=== PATIENT | female | born 1990 | race Caucasian/White ===

== ENCOUNTER → 2017-08-23 17:00 | Outpatient (CLI) | payer OTHER, SELFPAY ==
[2017-08-26 15:04] LABS: HPV Reflexed? NOT INDICATED
== END ==
PROVIDERS: Visit Provider Obstetrics & Gynecology
DX: Z12.4 Encounter for screening for malignant neoplasm of cervix (principal)
CPT/HCPCS: 88175; G0145

== ENCOUNTER → 2018-09-28 11:01 | Outpatient (CLI) | payer OTHER, SELFPAY ==
[2018-09-29 12:28] LABS: HPV Reflexed? NOT INDICATED
== END ==
PROVIDERS: Visit Provider Obstetrics & Gynecology
DX: Z12.4 Encounter for screening for malignant neoplasm of cervix (principal)
CPT/HCPCS: 88175; G0145

== ENCOUNTER → 2019-11-14 10:28 | Outpatient (CLI) | payer OTHER, SELFPAY ==
[2019-11-16 16:07] LABS: Age Gdln ACOG Testing 30-65 (.)
[2019-11-16 18:10] LABS: HPV APTIMA, High Risk Negative (Negative); HPV Reflexed? YES, CHARGE PATIENT
== END ==
PROVIDERS: Referring Provider Obstetrics & Gynecology; Visit Provider Obstetrics & Gynecology
DX: Z12.4 Encounter for screening for malignant neoplasm of cervix (principal)
CPT/HCPCS: 87624; 88175; G0145

== ENCOUNTER → 2021-01-14 10:46 | Outpatient (CLI) | payer OTHER, SELFPAY ==
[2021-01-14 11:55] LABS: Absolute Neutrophil Count 5.4 X10^3/uL (2.0-7.7); Basophil# 0.04 X10^3/uL; Basophil% 0.5 % (0-1); Eosinophil# 0.06 X10^3/uL; Eosinophils% 0.8 % (0-5); Hematocrit 38.6 % (37-47); Hemoglobin 12.8 g/dL (12.0-15.0); Mean Corp Hgb Conc 33.2 g/dL (32-36); Mean Corpuscular Hgb 30.7 pg (27.0-32.0); Mean Corpuscular Volume 92.6 fL (81-99); Monocyte# 0.42 X10^3/uL; Monocyte% 5.7 % (0-10); NRBC Flagged by Analyzer 0 % (0-5); Neutrophil # 5.41 X10^3/uL (2.7-7.7); Neutrophil % 73.6 % (47-70); Platelet Count 284 K/mm3 (150-450); RBC Distribution Width CV 12.2 % (11.6-14.6); RBC Distribution Width SD 41.1 fl (35.1-43.9); Red Blood Count 4.17 M/mm3 (4.2-5.4); White Blood Count 7.4 K/mm3 (4.4-11.0)
[2021-01-14 12:17] LABS: Glucose Challenge Gest 1H 50g 206 mg/dL (70-140)
[2021-01-14 12:56] LABS: HIV - WCH Non-Reactive (Nonreactive); Hepatitis B Surface Antigen Non-Reactive (Nonreactive); Hepatitis C Antibody Non-Reactive (Nonreactive); Rubella IgG Reactive (Nonreactive); Syphilis Antibodies Non-reactive
[2021-01-16 03:07] LABS: Chlamydia By Nucleic Acid AMP Negative (Negative)
[2021-01-16 08:15] LABS: Gonococcus By Nucleic Acid AMP Negative (Negative)
[2021-01-20 09:38] LABS: HPV APTIMA, High Risk Negative (Negative)
[2021-01-20 09:39] LABS: HPV Reflexed? YES, CHARGE PATIENT
== END ==
PROVIDERS: Visit Provider Obstetrics & Gynecology
DX: Z12.4 Encounter for screening for malignant neoplasm of cervix (principal); Z11.3 Encounter for screening for infections with a predominantly sexual mode of transmission; Z34.81 Encounter for supervision of other normal pregnancy, first trimester
CPT/HCPCS: 36415; 82950; 85025; 86703; 86762; 86780; 86803; 87086; 87088; 87340; 87491; 87591; 87624; 88175; G0145

== ENCOUNTER → 2021-03-16 10:32 | Outpatient (CLI) | payer OTHER, SELFPAY ==
[2021-03-18 03:07] LABS: AFP MoM Value 1.55 (.); AFP Value-EIA 45.2 ng/mL (.); Comment Report (.); DIA MoM Value 0.64 (.); DIA Value-EIA 106.36 pg/mL (.); DSR (By Age) 397 (.); DSR (Second Trimester) 10000 (.); Gestat. Age Based On As provided (.); Insulin Dep Diabetes No (.); Maternal Age At EDD 33.6 yr (.)
== END ==
PROVIDERS: Visit Provider Obstetrics & Gynecology
DX: Z34.82 Encounter for supervision of other normal pregnancy, second trimester (principal)
CPT/HCPCS: 36415; 82105; 82677; 84702

== ENCOUNTER 2021-08-11 10:17 | Outpatient (CLI) | payer OTHER, SELFPAY | END 2021-08-11 23:59 | disposition home or self-care (01) | LOC: LABSPEC 10:21 | PROVIDERS: Visit Provider Obstetrics & Gynecology | DX: Z36.85 Encounter for antenatal screening for Streptococcus B (principal) | CPT/HCPCS: 87081 ==

== ENCOUNTER 2021-08-31 14:50 | Inpatient (IN) | payer OTHER, SELFPAY ==
[2021-08-31] VITALS (52 sets, daily range): BP systolic 72–132; BP diastolic 37–93; PULSE 69–123; RESP 12–18; TEMP 36.5–37.3; O2SAT 85–100; BMI 31.6
[2021-08-31] MEDS: Lactated Ringers 1,000 ML 999 ML IV ×2 (05:45→17:59)
[2021-08-31 06:48] LABS: Absolute Lymphocyte Count 1.78 X10^3/uL (0.83-4.51); Absolute Neutrophil Count 5.7 X10^3/uL (2.0-7.7); Basophil# 0.03 X10^3/uL; Basophil% 0.4 % (0-1); Eosinophil# 0.07 X10^3/uL; Eosinophils% 0.8 % (0-5); Hematocrit 36.4 % (37-47); Hemoglobin 12.3 g/dL (12.0-15.0); Lymphocyte # 1.78 X10^3/ul (0.83-4.51); Lymphocyte % 21.3 % (19-41); Mean Corp Hgb Conc 33.8 g/dL (32-36); Mean Corpuscular Hgb 29.4 pg (27.0-32.0); Mean Corpuscular Volume 87.1 fL (81-99); Monocyte# 0.69 X10^3/uL; Monocyte% 8.2 % (0-10); NRBC Flagged by Analyzer 0 % (0-5); Neutrophil % 68.1 % (47-70); Platelet Count 271 K/mm3 (150-450); RBC Distribution Width CV 13.7 % (11.6-14.6); RBC Distribution Width SD 43.1 fl (35.1-43.9); Red Blood Count 4.18 M/mm3 (4.2-5.4); White Blood Count 8.4 K/mm3 (4.4-11.0)
[2021-08-31] MEDS: Lactated Ringers 500 ML 999 ML IV (15:20)
[2021-08-31] MEDS: fentaNYL-bupivacaine (epidural) 100 ML BAG EPIDURAL (15:53)
[2021-08-31] MEDS: Lactated Ringers 1,000 ML 200 ML IV (15:55)
--- NOTE | 2021-08-31 17:38 | HP.PCM.OB_ITS ---
History and Physical Date of Admission: 08/31/21 Chief complaint: Breech History present illness: 31-year-old G3, P2 at 39 weeks and 0 days with ORALIA: 09/08/1999 22 by 6-week ultrasound arrives for external cephalic version. Denies headache, visual changes, chest pain, shortness of breath, nausea vomiting, right upper quadrant pain. Patient states good movement. is complicated by GDM A2 Obstetric history: G1: 39-week female 02/03/2010 G2: 40-week male 06/10/2015 GDM A1 G3: Current Past medical history: None Medications: Levemir 25 units nightly Past surgical history: [place] teeth extraction Allergies: No known drug allergies Family history: Denies history DVT or PE Review of systems: Besides above pertinent positives a full review of systems was performed and found to be negative Physical exam: Vitals: Pulse 91 SpO2 100% on room air General: Normal-appearing no acute distress none HEENT: Normocephalic/atraumatic no cervical lymphadenopathy Cardiac/respiratory: As of accessory muscles, nonlabored breathing Abdomen: Soft, nontender, gravid Extremities: No peripheral edema normal peripheral pulses Psych: Normal affect normal demeanor nonpressured speech Bedside ultrasound: Breech presentation Labs: White blood cell count 8.4 hemoglobin 12.3 hematocrit 36.4% platelets 271 blood type a positive antibody negative Assessment plan: 31-year-old G2, P1 at 39 weeks and 0 days in breech presentation for external cephalic version with possible if failed version. Admit labor and delivery CFM GBS negative External Version: Given epidural, now given terbutaline GDM A2: We will continue to monitor blood sugars Routine orders
[2021-08-31] MEDS: Terbutaline 1 MG/ML Vial 0.25 MG SC (17:40)
[2021-08-31 18:06] LABS: Bedside Glucose 104 mg/dL (70-110)
[2021-08-31] MEDS: Cefazolin 2 GM in 0.9% Normal Saline 100 ML IV (18:39)
[2021-08-31] MEDS: Acetaminophen 500 MG Tablet 1000 MG PO (18:50)
[2021-08-31] MEDS: Sodium Citrate/Citric Acid 30 ML UDC PO (18:50)
--- NOTE | 2021-08-31 19:18 | OP.PCM_ITS ---
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 Normal uterus, tubes, and ovaries Consent: Patient with presentation at term status post failed external cephalic version in need of primary low transverse section Via Pfannenstiel incision for breech. Patient understands the risk of the procedure include but are not limited to visceral or vascular injury, prolonged hospitalization, blood loss and need for transfusion, reoperation. Patient states understanding and wished to proceed. All questions were answered and consent was signed. Procedure: Patient was brought back to the OR where epidural anesthesia was found to be adequate. 2 g of Ancef and 500 mg of azithromycin were given for infection prophylaxis. Patient was prepared and draped in a supine position with leftward tilt. A Pfannenstiel incision was made at the skin with a scalpel. Incision was carried down to the fascia. The fascia was excised and extended laterally. Inferior aspect of the fascia was grasped with a clamp and the underlying rectus and pyramidalis muscle were dissected off sharply with Cullen scissors. In similar aspect the superior aspect of the fascia was grasped with a Nori clamp and the underlying rectus muscle was dissected off sharply. Rectus muscle was dissected the midline down to the level of the pubic symphysis. Preperitoneal fat tissue was noted and peritoneum was entered bluntly. Peritoneum was extended superiorly and inferiorly with good visualization of bladder. Bladder blade was inserted and vesicouterine peritoneum was identified. Low transverse hysterotomy was made. Baby was delivered in standard breech fashion. Head and shoulders delivered with ease. Cord cut clamped. Baby was handed off to nursing. Placenta was delivered via cord traction and fundal massage. IV oxytocin was initiated in order to facilitate uterine contractions. Uterus was exteriorized and hysterotomy was closed in a continuous running fashion. Good hemostasis was noted. Uterus was placed back into the abdominal cavity and the incision was reinspected, good hemostasis was noted. Fascia was closed in a continuous running fashion with PDS suture. Subcutaneous tissue was irrigated and good hemostasis was noted. Skin was closed in a subcuticular fashion. All counts were correct x2. Patient tolerated the procedure well and was brought to recovery in a stable condition.
[2021-08-31] MEDS: Oxytocin 30 units/NS 500 ml 30 UNITS/500 ML IV.SOLN 167 UNITS IV (20:06)
[2021-08-31] MEDS: Ketorolac 30 MG/ML Syringe IV (20:14)
[2021-08-31 20:46] LABS: Bedside Glucose 144 mg/dL (70-110)
[2021-08-31] MEDS: Lactated Ringers 1,000 ML 100 ML IV (23:00)
[2021-09-01] VITALS (7 sets, daily range): BP systolic 107–123; BP diastolic 44–78; PULSE 82–102; RESP 16; TEMP 36.5–36.8; O2SAT 96–98
[2021-09-01] MEDS: Acetaminophen 500 MG Tablet 1000 MG PO ×5 (00:02→23:45)
[2021-09-01] MEDS: Ketorolac 30 MG/ML Syringe IV ×3 (03:04→15:44)
[2021-09-01 06:16] LABS: Bedside Glucose 115 mg/dL (70-110)
[2021-09-01 06:16] LABS: Hematocrit 30.3 % (37-47); Hemoglobin 10.2 g/dL (12.0-15.0); Mean Corp Hgb Conc 33.7 g/dL (32-36); Mean Corpuscular Hgb 29.5 pg (27.0-32.0); Mean Corpuscular Volume 87.6 fL (81-99); Mean Platelet Vol. 10.2 fl (6.2-12.0); Platelet Count 196 K/mm3 (150-450); RBC Distribution Width CV 13.8 % (11.6-14.6); RBC Distribution Width SD 43.7 fl (35.1-43.9); Red Blood Count 3.46 M/mm3 (4.2-5.4); White Blood Count 11.6 K/mm3 (4.4-11.0)
--- NOTE | 2021-09-01 09:11 | PCM.PN.OB ---
Subjective Subjective No issues overnight. OOB, ambulating and voiding without difficulty. No flatus yet. Denies nause or vomiting. No heavy lochia. . Objective Data Objective Data Vital Signs: Vital Signs Temp Pulse Resp BP Pulse Ox 97.8 F 91 16 116/62 98 09/01/21 03:46 09/01/21 03:46 09/01/21 05:47 09/01/21 03:46 09/01/21 05:47 Oxygen Delivery Method Room Air Weight: 83.461 kg Body Mass Index (BMI) 31.6 Intake & Output: Intake and Output for Last 24 Hours 08/30/21 08/31/21 09/01/21 23:59 23:59 23:59 Intake Total 3524.25 / 3524.25 726.67 / 726.67 Output Total 500 / 500 1050 / 1050 Balance 3024.25 / 3024.25 -323.33 / -323.33 Lab / Micro Data Result Diagrams: 09/01/21 06:05 Labs: Laboratory Results - last 24 hr 08/31/21 17:55: POC Glucose 104 08/31/21 20:37: POC Glucose 144 H 09/01/21 06:00: POC Glucose 115 H 09/01/21 06:05: WBC 11.6 H, RBC 3.46 L, Hgb 10.2 L, Hct 30.3 L, MCV 87.6, MCH 29.5, MCHC 33.7, RDW Std Deviation 43.7, RDW Coeff of Brian 13.8, Plt Count 196, MPV 10.2 Micro: Microbiology 08/31/21 06:00 Nasal Secretion SARS-CoV-2 Antigen (Rapid) - Final Physical Exam Const alert, oriented x3 and no apparent distress Resp normal respiratory effort, normal air movement and clear to auscultation bilaterally Cardio regular rate, regular rhythm, S1 normal heart sound and S2 normal heart sound GI normal to inspection, nondistended, normoactive bowel sounds, soft to palpation, non-tender and non-distended GI Narrative: incisional dressing c/d/i Manual OB Exam: other lochia scant Uterus Palpation: uterus fundus firm Extremity no calf tenderness Assessment & Plan (1) delivery delivered: PLAN: POD#1 Doing well Routine postop care hx GDMA2 - elevated fasting blood sugar this morning, will repeat tomorrow am also
[2021-09-01] MEDS: Enoxaparin 40 MG/0.4 ML Syringe SC (09:28)
[2021-09-01] MEDS: Senna/Docusate Sodium 1 Tablet PO (09:28)
[2021-09-01] MEDS: 0.9% Saline Lock 10 ML Syringe IV ×2 (09:29→15:45)
[2021-09-01] MEDS: Ibuprofen 600 MG Tablet PO (21:17)
[2021-09-02 02:30] VITALS: BP 104/74; PULSE 87; RESP 16; TEMP 36.4; O2SAT 95
[2021-09-02] MEDS: Ibuprofen 600 MG Tablet PO ×2 (02:59→09:06)
[2021-09-02] MEDS: Acetaminophen 500 MG Tablet 1000 MG PO (06:35)
[2021-09-02 06:46] LABS: Bedside Glucose 85 mg/dL (70-110)
--- NOTE | 2021-09-02 08:30 | PCM.DC.SUM ---
Providers Date of Admission: 08/31/21 Primary Care Physician: No Primary Care Phys Reason For Visit: VERSION Diagnosis Discharge Diagnosis (1) delivery delivered: Status: Acute Code(s): O82 - Encounter for delivery without indication Medications at Discharge Home Medications ibuprofen 600 mg PO Q8H PRN PRN 7 Days #30 tab 09/02/21 oxycodone 5 mg PO Q6H PRN 3 Days #10 cap 09/02/21 Hospital Course Operations section Procedures - (External cephalic version) Summary of Care Provided Hospital Course: 31yo admitted at 39 weeks gestation for scheduled ECV. Patient had a history of gestational diabetes controlled on Levemir. Version was unsuccessful thus patient underwent low transverse section. The procedure was uncomplicated and her postop course unremarkable. She was out of bed, ambulating, passing flatus, voiding, tolerating PO and and discharged to home on POD#2. Physical Exam Const alert, oriented x3 and no apparent distress General Appearance: cooperative and comfortable HEENT normocephalic Resp Auscultation: clear to auscultation bilaterally Cardio regular rate, regular rhythm, S1 normal heart sound and S2 normal heart sound GI normal to inspection, nondistended, normoactive bowel sounds, soft to palpation and non-tender GI Narrative: incisional dressing c/d/i OB / External & Speculum: other Uterus Palpation: other OB Fundus firm and nontender Extremity no calf tenderness Weight / BMI Weight Weight: 83.461 kg Body Mass Index (BMI) 31.6 ABG / Lab / Microbiology Data Result Diagrams: 09/01/21 06:05 Laboratory: Laboratory Results - last 24 hr 09/02/21 06:37: POC Glucose 85 Microbiology: Microbiology 08/31/21 06:00 Nasal Secretion SARS-CoV-2 Antigen (Rapid) - Final D/C Instructions Discharge Diet: No restrictions Discharge Activity: Return to Normal Activity May resume sexual activity in: 4-6 weeks Lifting Restricted to (Lbs): 10 Call your doctor if your incision/area has: Continuous Slow Oozing, Sudden Increased Bleeding, Increased Pain/ Swelling, Increased Redness, Foul Smelling Discharge and Swelling at the incision site Call your doctor if you observe: Fever of 101 or Higher, Inability to urinate, Inability to have a bowel movement, Using more than 1 pad per hour, Shortness of breath, Chest pain, Calf discomfort and Uncontrolled pain Remove Dressing in: 4 days Cleanse incision/area with: Soap & Water Please Follow Up With: Lev Caceres MD When: 2 weeks for incision check 6 weeks for visit Meaningful Use Info Meaningful Use Diagnoses (Choose all that apply): None applicable Discharge Plan Admission Admit Date/Time: 08/31/21 14:50 Primary Reason for Your Visit: section Attending Provider: Lev Caceres Primary Care Provider: Care Physician,Sola Primary Discharge Orders/Prescriptions Prescriptions: New ibuprofen 600 mg Tablet 600 mg PO Q8H PRN PRN (Reason: pain) 7 Days Qty: 30 RF: 0 oxycodone 5 mg capsule 5 mg PO Q6H PRN (Reason: pain) 3 Days Qty: 10 RF: 0 Discontinued Prenatabs FA 1 TABLET tablet 1 tab PO DAILY RF: 0 aspirin 81 mg Tablet 81 mg PO DAILY RF: 0 Levemir U-100 Insulin 100 unit/mL Solution 20 unit SUBCUT QHS RF: 0 Referrals / Follow Up: Care Physician,No Primary [Primary Care Provider] - Disposition Disposition (needs filled in before D/C Order can be placed): Home, Self Care
[2021-09-02 08:57] VITALS: BP 107/77; PULSE 99; RESP 16; TEMP 36.7; O2SAT 97
[2021-09-02] MEDS: Enoxaparin 40 MG/0.4 ML Syringe SC (09:06)
[2021-09-02] MEDS: Senna/Docusate Sodium 1 Tablet PO (09:06)
== END 2021-09-02 11:35 | disposition home or self-care (01) | DRG 788 ==
LOC: WP 14:58
PROVIDERS: Admitting Provider Obstetrics & Gynecology; Visit Provider Obstetrics & Gynecology
PROC: 10D00Z1 Extraction of Products of Conception, Low, Open Approach (ICD-10-PCS; CPT 59514; principal; 2021-08-31 07:15)
DX: O32.1XX0 Maternal care for breech presentation, not applicable or unspecified (principal); O24.429 Gestational diabetes mellitus in childbirth, unspecified control; Z37.0 Single live birth; Z3A.39 39 weeks gestation of pregnancy
CPT/HCPCS: 59025; 59050; 82962; 85025; 85027; 86850; 86900; 86901; 87426; 99218; J7120; A4216; G0378; J2405

== ENCOUNTER 2021-10-06 08:39 | Outpatient (CLI) | payer OTHER, SELFPAY ==
[2021-10-06 12:03] LABS: Glucose 2 Hour Postprandial 81 mg/dL (<140)
== END 2021-10-06 23:59 | disposition home or self-care (01) ==
LOC: WOBLAB 08:40
PROVIDERS: Visit Provider Obstetrics & Gynecology
DX: O24.419 Gestational diabetes mellitus in pregnancy, unspecified control (principal); Z3A.00 Weeks of gestation of pregnancy not specified
CPT/HCPCS: 36415; 82950

== ENCOUNTER → 2023-11-07 | Outpatient (CLI) | payer OTHER, SELFPAY ==
[2023-11-07 15:22] LABS: Absolute Lymphocyte Count 2.47 X10^3/uL (0.83-4.51); Basophil# 0.06 X10^3/uL; Eosinophil# 0.11 X10^3/uL; Eosinophils% 1.8 % (0-5); Hematocrit 40.4 % (37-47); Hemoglobin 13.8 g/dL (12.0-15.0); Lymphocyte # 2.47 X10^3/ul (0.83-4.51); Lymphocyte % 40.5 % (19-41); Mean Corp Hgb Conc 34.2 g/dL (32-36); Mean Corpuscular Hgb 30.8 pg (27.0-32.0); Mean Corpuscular Volume 90.2 fL (81-99); Mean Platelet Vol. 10.1 fl (6.2-12.0); Monocyte# 0.45 X10^3/uL; Monocyte% 7.4 % (0-10); NRBC Flagged by Analyzer 0 % (0-5); Neutrophil # 2.99 X10^3/uL (2.7-7.7); Platelet Count 353 K/mm3 (150-450); RBC Distribution Width SD 39.5 fl (35.1-43.9); Red Blood Count 4.48 M/mm3 (4.2-5.4); White Blood Count 6.1 K/mm3 (4.4-11.0)
[2023-11-07 16:20] LABS: Hemoglobin A1c 5.4 % (3.8-5.6)
[2023-11-07 16:29] LABS: ALB/GLOB Ratio 1.1 RATIO (0.9-2.4); AST(SGOT) 27 U/L (15-37); Alanine Aminotransfer ALT/SGPT 63 U/L (13-56); Alkaline Phosphatase 84 U/L (45-117); Anion Gap 9 (5-15); BUN 10 mg/dL (7-18); BUN/Creat Ratio 17.1 RATIO (10-20); Calcium,Total 8.8 mg/dL (8.5-10.1); Chloride 105 mmol/L (98-107); Cholesterol 158 mg/dL (200); Creatinine, Serum 0.58 mg/dL (0.55-1.02); EST Glomerular Filtration Rate 124 mL/min (>60); Est Glom Filt Rate - Afr Amer 150 mL/min (>60); Globulin 3.8 g/dL (2.2-4.2); Glucose 89 mg/dL (74-106); High Density Lipoprotein 49 mg/dL; Potassium 3.8 mmol/L (3.5-5.1); Protein, Total 7.8 g/dL (6.4-8.2); Sodium Level 136 mmol/L (136-145); Triglycerides 137 mg/dL; Very Low Density Lipoprotein 27 mg/dL (5-40)
[2023-11-08 13:42] LABS: T4 Free Direct 1.06 ng/dL (0.76-1.46); Thyroid Stim Hormone (TSH) 1.08 uIU/mL (0.358-3.74)
== END | disposition home or self-care (01) ==
PROVIDERS: PCP Nurse Practitioner Family; Referring Provider Nurse Practitioner Family; Visit Provider Nurse Practitioner Family
DX: Z00.01 Encounter for general adult medical examination with abnormal findings (principal); R63.5 Abnormal weight gain; Z83.3 Family history of diabetes mellitus
CPT/HCPCS: 36415; 80053; 80061; 83036; 84439; 84443; 85025